=== PATIENT | male | born 2000 | race Caucasian/White ===

== ENCOUNTER 2020-07-01 14:59 | Emergency (ER) | payer BC ==
[~2020-07-01] VITALS: Ht 185.4 cm; Wt 81.8 kg
[2020-07-01 15:04] VITALS: TEMP 98.3
[2020-07-01] MEDS ORDERED: CEPHALEXIN500 M1 PO (17:36)
[2020-07-01 17:49] VITALS: BP 130/93; PULSE 92
== END 2020-07-01 17:54 | disposition home or self-care (01) ==
LOC: COL.ER 14:59
DX: S62.631B Displaced fracture of distal phalanx of left index finger, initial encounter for open fracture (principal); S61.211A Laceration without foreign body of left index finger without damage to nail, initial encounter; W20.8XXA Other cause of strike by thrown, projected or falling object, initial encounter
CPT/HCPCS: J0690